=== PATIENT | male | born 2000 | race Caucasian/White ===

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

== ENCOUNTER 2020-07-17 19:52 | Emergency (ER) | payer OTHER | END 2020-07-17 20:57 | disposition home or self-care (01) | LOC: FER 19:52 | DX: I10 Essential (primary) hypertension (principal); F17.210 Nicotine dependence, cigarettes, uncomplicated | CPT/HCPCS: 99283 ==

== ENCOUNTER 2021-05-08 09:51 | Emergency (ER) | payer OTHER ==
[2021-05-08] MEDS ORDERED: NORCO 5-325 TA1 EACH PO (11:54)
== END 2021-05-08 12:40 | disposition home or self-care (01) ==
LOC: FER 09:51
DX: S92.422A Displaced fracture of distal phalanx of left great toe, initial encounter for closed fracture (principal); I10 Essential (primary) hypertension; F17.210 Nicotine dependence, cigarettes, uncomplicated; W23.1XXA Caught, crushed, jammed, or pinched between stationary objects, initial encounter; Y92.89 Other specified places as the place of occurrence of the external cause; Y99.0 Civilian activity done for income or pay
CPT/HCPCS: 73660